=== PATIENT | female | born 1985 | race Two or more races ===

== ENCOUNTER 2020-09-26 09:56 | Outpatient (CLI) | payer OTHER | END 2020-09-26 10:10 | disposition home or self-care (01) | LOC: RX STUDY 09:56 | PROVIDERS: ATTEND Obstetrics & Gynecology | DX: N97.8 Female infertility of other origin (principal); N70.91 Salpingitis, unspecified ==

== ENCOUNTER 2021-09-30 12:00 | Inpatient (IN) | payer OTHER ==
[~2021-09-30] VITALS: Ht 157.5 cm; Wt 2.7 kg
[2021-10-11] MEDS ORDERED: PRENATAL + DHA1 EAC1 PO (10:11)
== END 2021-10-14 11:08 | disposition home or self-care (01) | DRG 788 ==
LOC: SURG-SUITE 10-11 00:27 → LDR 10-11 00:27 → SURG-SUITE 10-11 16:43 → OB/GYN 10-19 12:00
PROVIDERS: ADMIT Obstetrics & Gynecology Maternal & Fetal Medicine; ATTEND Obstetrics & Gynecology Maternal & Fetal Medicine
PROC: 4A1HXCZ Monitoring of Products of Conception, Cardiac Rate, External Approach (ICD-10-PCS; 2021-10-11)
PROC: 3E033VJ Introduction of Other Hormone into Peripheral Vein, Percutaneous Approach (ICD-10-PCS; 2021-10-11)
PROC: 10D00Z1 Extraction of Products of Conception, Low, Open Approach (ICD-10-PCS; principal; 2021-10-11 16:45)
DX: O61.0 Failed medical induction of labor (principal); O42.02 Full-term premature rupture of membranes, onset of labor within 24 hours of rupture; Z3A.38 38 weeks gestation of pregnancy; Z37.0 Single live birth; Z20.822 Contact with and (suspected) exposure to COVID-19

== ENCOUNTER 2023-09-04 09:18 | Outpatient (CLI) | payer OTHER ==
[~2023-09-04 09:18] MED LIST: PRENATAL + DHA1 EAC1 PO
[2023-09-04] MEDS ORDERED: RINGERS SOLUTION,LACTATED 1,000 ML IV SCH (10:15)
[2023-09-04 10:51] LABS: HEMATOCRIT 31.3 % (36.0-45.00); HEMOGLOBIN 10.6 g/dL (12.0-15.00); MEAN CELL VOLUME 85.4 fL (80.00-100.00); PLATELET COUNT 241 K/uL (150-450); RED BLOOD COUNT 3.67 M/uL (4.00-6.00); RED CELL DISTRIBUTION WIDTH 13.9 % (11.5-14.5)
[2023-09-04 11:25] LABS: ALBUMIN 2.6 gm/dL (3.4-5.0); BILIRUBIN TOTAL 0.27 mg/dL (0.3-1.2); CALCIUM 8.2 mg/dL (8.5-10.1); CREATININE SERUM 0.48 mg/dL (0.55-1.02); GFR 146.34; GLOBULINA 3.4 G/DL (2.4-3.5); POTASSIUM 4.07 mEq/L (3.5-5.1)
[2023-09-04] MEDS ORDERED: OSELTAMIVIR PHOSPHATE 75 MG CAPSULE PO SCH (13:48)
== END 2023-09-04 14:00 | disposition home or self-care (01) ==
LOC: OBS/DEL 09:18
PROVIDERS: ATTEND Obstetrics & Gynecology
DX: O98.513 Other viral diseases complicating pregnancy, third trimester (principal); Z3A.32 32 weeks gestation of pregnancy; J10.1 Influenza due to other identified influenza virus with other respiratory manifestations